=== PATIENT | female | born 2000 | race Caucasian/White ===

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

== ENCOUNTER → 2021-01-28 | Outpatient (CLI) | payer MEDICAID | LOC: M WHC 13:04 | PROVIDERS: ATTEND Advanced Practice Midwife | DX: Z36.9 Encounter for antenatal screening, unspecified (principal); Z3A.21 21 weeks gestation of pregnancy ==

== ENCOUNTER 2021-03-01 11:52 | Outpatient (CLI) | payer MEDICAID ==
[~2021-03-01] VITALS: Ht 157.5 cm; Wt 68.9 kg
[2021-03-01 12:09] VITALS: BP 114/61
[2021-03-01] MEDS ORDERED: PRENTAB9 PO (12:34)
--- NOTE | 2021-03-01 14:09 | IPN ---
PROGRESS NOTE DATE: 03/01/2021 SUBJECTIVE: Gissell is a 20-year-old, 2, para 1-0-0-1, at 24 weeks and 6 days with an EDC of 06/15/21. She presents to labor and delivery with report of upon awakening at 10 a.m., noticed an orange discharge in her underwear. She had no further clean underwear or pads to put on so she presented to labor and delivery for evaluation. She denies contractions, vaginal bleeding and continued leakage. She does report the fetus has been active. care was [facility] at [facility] in the first trimester. course was complicated by tobacco use, bipolar, anxiety, ADHD, depression and she is hearing impaired. OBSTETRIC HISTORY: April,, 5 lb, 9 oz male, vaginal delivery, 38 weeks and 5 days. MEDICAL HISTORY: Bipolar, depression, anxiety, von Willebrand's, asthma, seizures, hearing impaired. SURGERIES: Tympanostomy, cleft palate repair. FAMILY HISTORY: von Willebrand's. SOCIAL HISTORY: The patient is single. She is a smoker, about 1/2 pack per day. She denies current alcohol use and drug use. During her , she does report a history of alcohol and marijuana use prior to . She is unemployed and lives with her other child. ALLERGIES: To penicillin and cefdinir. CURRENT MEDICATIONS: vitamin. OBJECTIVE: Temperature 98, pulse 91. BP is 114/61. The heart rate is 135, appropriate for gestational age. There is no pattern of contractions. Sterile speculum exam: Normal physiological discharge. Gonorrhea and chlamydia collected. Negative Valsalva, negative nitrazine, negative ferning. Sterile vaginal exam: Long, thick, closed, firm. ASSESSMENT: Intrauterine at 24 and 6/7 weeks. heart rate is appropriate for gestational age. PLAN: Discharge the patient home. I did review signs and symptoms of labor, premature rupture of membranes, movement counts and danger signs. I reviewed access to care. The patient is instructed to keep her next appointment. She and her mother's questions have been answered and they do request discharge.
[2021-03-01 15:19] LABS: GC DNA AMPLIFICATION NEGATIVE (NEGATIVE)
== END 2021-03-01 13:45 | disposition home or self-care (01) ==
LOC: M LDO 11:52
PROVIDERS: ATTEND Advanced Practice Midwife
DX: O26.892 Other specified pregnancy related conditions, second trimester (principal); N89.8 Other specified noninflammatory disorders of vagina; O99.332 Smoking (tobacco) complicating pregnancy, second trimester; F17.210 Nicotine dependence, cigarettes, uncomplicated; O99.342 Other mental disorders complicating pregnancy, second trimester; F31.9 Bipolar disorder, unspecified; Z3A.24 24 weeks gestation of pregnancy

== ENCOUNTER 2021-05-04 12:38 | Outpatient (CLI) | payer MEDICAID ==
[~2021-05-04] VITALS: Ht 157.5 cm; Wt 76.3 kg
[2021-05-04 12:51] VITALS: BP 134/74
[2021-05-04] MEDS ORDERED: HOME MED LIST COMPLETE! XX SCH (13:05)
[2021-05-04] MEDS ORDERED: LR 1,000 ML IV SCH (13:10)
[2021-05-04] MEDS ORDERED: LACTATED RINGER'S 1000 ML IV STA (13:10)
[2021-05-04 13:28] VITALS: BP 115/62
[2021-05-04 13:29] VITALS: BP 112/61
[2021-05-04] MEDS ORDERED: ACETAMINOPHEN 500 MG TAB PO ONE (14:15)
[2021-05-04] MEDS ORDERED: PROMETHAZINE INJ 25 MG/ML VIAL (J2550) IV ONE (14:15)
[2021-05-04 14:42] VITALS: BP 113/61
[2021-05-04 14:58] LABS: BASO % 0.3 % (0.0-1.0); EOS # 0.1 10^3/uL (0.0-0.5); EOS % 0.8 % (0.0-3.0); HEMATOCRIT 40.2 % (36.0-47.0); HEMOGLOBIN 13.9 g/dl (12.0-15.5); LYMPH # 1.1 10^3/uL (1.5-5.0); LYMPH % 8.8 % (24.0-44.0); MEAN CORPUSCULAR HEMOGLOBIN 33.2 pg (27.0-33.0); MEAN CORPUSCULAR HGB CONC 34.6 g/dl (32.0-36.5); MEAN CORPUSCULAR VOLUME 95.9 fl (80.0-96.0); MONO # 0.7 10^3/uL (0.0-0.8); MONO % 5.4 % (2.0-8.0); NEUTROPHILS # 10.9 10^3/uL (1.5-8.5); NEUTROPHILS % 84.2 % (36.0-66.0); PLATELET COUNT, AUTOMATED 143 10^3/uL (150-450); RED BLOOD COUNT 4.19 10^6/uL (4.00-5.40); WHITE BLOOD COUNT 12.9 10^3/uL (4.0-10.0)
[2021-05-04 15:08] LABS: ALBUMIN 2.4 GM/DL (3.2-5.2); ALT/SGPT 13 U/L (12-78); AMYLASE 35 U/L (25-115); BILIRUBIN,TOTAL 0.5 MG/DL (0.2-1.0); BLOOD UREA NITROGEN 8 MG/DL (7-18); CALCIUM LEVEL 8.1 MG/DL (8.5-10.1); CARBON DIOXIDE LEVEL 23 MEQ/L (21-32); CHLORIDE LEVEL 105 MEQ/L (98-107); CREATININE FOR GFR 0.41 MG/DL (0.55-1.30); GLUCOSE, FASTING 67 MG/DL (70-100); LIPASE 72 U/L (73-393); POTASSIUM SERUM 3.7 MEQ/L (3.5-5.1); SODIUM LEVEL 137 MEQ/L (136-145)
[2021-05-04 16:27] VITALS: BP 116/60
== END 2021-05-04 18:10 | disposition home or self-care (01) ==
LOC: M LDO 12:38
PROVIDERS: ATTEND Obstetrics & Gynecology
DX: O60.03 Preterm labor without delivery, third trimester (principal); O22.93 Venous complication in pregnancy, unspecified, third trimester; O99.333 Smoking (tobacco) complicating pregnancy, third trimester; F17.210 Nicotine dependence, cigarettes, uncomplicated; Z3A.34 34 weeks gestation of pregnancy

== ENCOUNTER → 2021-05-24 | Outpatient (REF) | payer MEDICAID | LOC: M PLALAB 13:49 | PROVIDERS: ATTEND Obstetrics & Gynecology | DX: Z36.85 Encounter for antenatal screening for Streptococcus B (principal) ==

== ENCOUNTER 2021-05-31 21:54 | Outpatient (CLI) | payer MEDICAID ==
[~2021-05-31] VITALS: Ht 157.5 cm; Wt 79.1 kg
[2021-05-31 22:16] VITALS: BP 116/81
[2021-05-31] MEDS ORDERED: RHOGAM 300 MCG (1500 IU) INJ (J2790) IM SCH (23:20)
[2021-05-31] MEDS ORDERED: MEASLES,MUMPS,RUBELLA VACCINE INJ (MMR-II) (90707) SC SCH (23:20)
[2021-05-31] MEDS ORDERED: SIMETHICONE 80MG CHEW TAB PO PRN (23:20)
[2021-06-01] MEDS ORDERED: PRENATAL VITAMINS CHEWABLE TABLET PO SCH (09:00)
== END 2021-05-31 23:54 | disposition home or self-care (01) ==
LOC: M LDO 21:54
PROVIDERS: ATTEND Obstetrics & Gynecology
DX: O26.893 Other specified pregnancy related conditions, third trimester (principal); N89.8 Other specified noninflammatory disorders of vagina; Z3A.37 37 weeks gestation of pregnancy

== ENCOUNTER 2021-12-31 21:52 | Emergency (ER) | payer MEDICAID, OTHER ==
[~2021-12-31] VITALS: Ht 157.5 cm; Wt 73.6 kg
[2021-12-31 21:52] VITALS: BP 128/71
[~2021-12-31 21:52] MED LIST changes: +ALBU2.5V10 INH; -ALBU83IN INH; +COLA100C5 PO; +ETON68IM SC; -NEXP1IMP SC
== END 2022-01-01 00:13 | disposition left against medical advice (07) ==
LOC: M ED 21:52
DX: Z53.21 Procedure and treatment not carried out due to patient leaving prior to being seen by health care provider (principal)

== ENCOUNTER 2022-01-18 22:31 | Emergency (ER) | payer OTHER ==
[~2022-01-18] VITALS: Ht 157.5 cm; Wt 72.7 kg
[2022-01-18 22:43] VITALS: BP 152/76
[2022-01-18] MEDS ORDERED: IPRATROPIUM 0.5MG/ALBUTEROL 2.5MG INH SOL UD 3ML (DUONEB) NEB PRN (22:55)
[2022-01-18] MEDS ORDERED: IBUPROFEN 600MG TAB PO ONE (23:05)
[2022-01-18] MEDS ORDERED: NS 1,000 ML IV ONE (23:10)
[2022-01-18 23:19] LABS: BASO % 0.5 % (0.0-1.0); EOS % 0.2 % (0.0-3.0); HEMATOCRIT 37.4 % (36.0-47.0); HEMOGLOBIN 13.5 g/dl (12.0-15.5); LYMPH # 0.7 10^3/uL (1.5-5.0); LYMPH % 10.7 % (24.0-44.0); MEAN CORPUSCULAR HEMOGLOBIN 32.3 pg (27.0-33.0); MEAN CORPUSCULAR HGB CONC 36.1 g/dl (32.0-36.5); MEAN CORPUSCULAR VOLUME 89.5 fl (80.0-96.0); MONO # 0.4 10^3/uL (0.0-0.8); MONO % 6.6 % (2.0-8.0); NEUTROPHILS # 5.4 10^3/uL (1.5-8.5); NEUTROPHILS % 81.7 % (36.0-66.0); PLATELET COUNT, AUTOMATED 131 10^3/uL (150-450); RED BLOOD COUNT 4.18 10^6/uL (4.00-5.40); WHITE BLOOD COUNT 6.7 10^3/uL (4.0-10.0)
[2022-01-18 23:52] LABS: ALBUMIN 3.9 G/DL (3.2-5.2); ALT/SGPT 28 U/L (7.0-40); BILIRUBIN,DIRECT 0.5 MG/DL (<0.4); BLOOD UREA NITROGEN 16 MG/DL (9-23); CARBON DIOXIDE LEVEL 20 MMOL/L (20-31); CHLORIDE LEVEL 106 MMOL/L (98-107); CREATININE FOR GFR 0.69 MG/DL (0.55-1.30); GLUCOSE, FASTING 111 MG/DL (60-100); POTASSIUM SERUM 3.1 MMOL/L (3.5-5.1); SODIUM LEVEL 137 MMOL/L (136-145); THYROID STIMULATING HORMONE 0.591 uIU/ML (0.48-4.17); TOTAL PROTEIN 6.7 G/DL (5.7-8.2)
[2022-01-18] MEDS ORDERED: ISOVUE-370 76% 100ML VIAL As Ordered ONE (23:58)
[2022-01-19 01:54] LABS: ABG BASE EXCESS -5.1 (-2.0-2.0); ABG HCO3 17.6 MEQ/L (22.0-26.0); ABG O2 SATURATION 99.3 % (95.0-99.0); ABG PARTIAL PRESSURE CO2 27.1 mmHg (35.0-45.0); ABG PARTIAL PRESSURE O2 222.9 mmHg (75.0-100.0); ABG STANDARD HCO3 20.4 MEQ/L (22.0-26.0); ABG TOTAL CO2 18.5 MEQ/L (22.0-29.0); ABG pH (ARTERIAL) 7.431 UNITS (7.350-7.450)
[2022-01-19] MEDS ORDERED: OSELTAMIVIR PHOSPHATE 75 MG CAP (TAMIFLU) PO ONE (02:50)
[2022-01-19] MEDS ORDERED: PRED20TA PO (02:53)
[2022-01-19] MEDS ORDERED: OSEL75CA PO (02:53)
== END 2022-01-19 03:14 | disposition home or self-care (01) ==
LOC: M ED 22:31
DX: J45.901 Unspecified asthma with (acute) exacerbation (principal); J09.X2 Influenza due to identified novel influenza A virus with other respiratory manifestations; B34.8 Other viral infections of unspecified site; M54.9 Dorsalgia, unspecified; F31.9 Bipolar disorder, unspecified; F41.9 Anxiety disorder, unspecified; R56.9 Unspecified convulsions; Z87.442 Personal history of urinary calculi; F07.81 Postconcussional syndrome; F17.200 Nicotine dependence, unspecified, uncomplicated; Z88.0 Allergy status to penicillin; Z88.1 Allergy status to other antibiotic agents; Z79.899 Other long term (current) drug therapy

== ENCOUNTER 2023-10-30 14:02 | Emergency (ER) | payer OTHER ==
[~2023-10-30] VITALS: Ht 157.5 cm; Wt 57.1 kg
[~2023-10-30 14:02] MED LIST changes: +OSEL75CA PO
[2023-10-30 14:43] LABS: BASO % 0.4 % (0.0-1.0); EOS # 0.2 10^3/uL (0.0-0.5); EOS % 2.8 % (0.0-3.0); HEMATOCRIT 39.9 % (36.0-47.0); HEMOGLOBIN 14.4 g/dl (12.0-15.5); LYMPH # 2.6 10^3/uL (1.5-5.0); LYMPH % 33.7 % (24.0-44.0); MEAN CORPUSCULAR HEMOGLOBIN 33.8 pg (27.0-33.0); MEAN CORPUSCULAR HGB CONC 36.1 g/dl (32.0-36.5); MEAN CORPUSCULAR VOLUME 93.7 fl (80.0-96.0); MONO # 0.6 10^3/uL (0.0-0.8); MONO % 7.1 % (2.0-8.0); NEUTROPHILS # 4.3 10^3/uL (1.5-8.5); NEUTROPHILS % 55.9 % (36.0-66.0); PLATELET COUNT, AUTOMATED 198 10^3/uL (150-450); RED BLOOD COUNT 4.26 10^6/uL (4.00-5.40); WHITE BLOOD COUNT 7.7 10^3/uL (4.0-10.0)
[2023-10-30 15:12] LABS: BLOOD UREA NITROGEN 12 MG/DL (9-23); CALCIUM LEVEL 8.8 MG/DL (8.5-10.1); CARBON DIOXIDE LEVEL 26 MMOL/L (20-31); CHLORIDE LEVEL 111 MMOL/L (98-107); CREATININE FOR GFR 0.64 MG/DL (0.55-1.30); GLOMERULAR FILTRATION RATE > 60.0 (>60); GLUCOSE, FASTING 99 MG/DL (60-100); HCG, SERUM QUANTITATIVE 4.3 MIU/ML (<4.2); POTASSIUM SERUM 3.6 MMOL/L (3.5-5.1); SODIUM LEVEL 139 MMOL/L (136-145)
[2023-10-30 16:47] VITALS: BP 114/66; TEMP 98.1; O2SAT 99
== END 2023-10-30 16:51 | disposition home or self-care (01) ==
LOC: M ED 14:02
DX: O03.9 Complete or unspecified spontaneous abortion without complication (principal); F31.9 Bipolar disorder, unspecified; F17.200 Nicotine dependence, unspecified, uncomplicated; Z88.0 Allergy status to penicillin; Z88.1 Allergy status to other antibiotic agents; Z79.52 Long term (current) use of systemic steroids; Z79.899 Other long term (current) drug therapy

== ENCOUNTER 2024-02-17 03:57 | Emergency (ER) | payer OTHER ==
[~2024-02-17] VITALS: Ht 157.5 cm; Wt 57.6 kg
[2024-02-17] MEDS: ACETAMINOPHEN 325 MG TAB PO ONE (08:40)
[2024-02-17] MEDS ORDERED: CLEO300C2 PO (11:55)
[2024-02-17 12:02] VITALS: BP 136/63; TEMP 97; O2SAT 100
== END 2024-02-17 12:13 | disposition home or self-care (01) ==
LOC: EDBD 03:57 → M ED 03:57
DX: K02.9 Dental caries, unspecified (principal); K08.89 Other specified disorders of teeth and supporting structures; Z88.0 Allergy status to penicillin; Z88.1 Allergy status to other antibiotic agents; Z79.2 Long term (current) use of antibiotics

== ENCOUNTER → 2024-04-04 | Outpatient (REF) | payer MEDICAID, OTHER ==
[~2024-04-04] MED LIST changes: +CLEO300C2 PO
[2024-04-04 16:15] LABS: Trichomonas vaginalis (AMP) NOT DETECTED (NEGATIVE)
[2024-04-04 16:39] LABS: GC DNA AMPLIFICATION NEGATIVE (NEGATIVE)
== END ==
LOC: M SFHCWAGY 13:19
PROVIDERS: ATTEND Nurse Practitioner Family
DX: Z34.80 Encounter for supervision of other normal pregnancy, unspecified trimester (principal); Z11.3 Encounter for screening for infections with a predominantly sexual mode of transmission

== ENCOUNTER → 2024-04-04 | Outpatient (CLI) | payer OTHER | LOC: M WHC 09:44 | PROVIDERS: ATTEND Nurse Practitioner Family | DX: Z34.82 Encounter for supervision of other normal pregnancy, second trimester (principal); Z3A.15 15 weeks gestation of pregnancy; Z78.9 Other specified health status ==

== ENCOUNTER → 2024-04-05 | Outpatient (CLI) | payer MEDICAID, OTHER ==
[2024-04-05 15:02] LABS: HEMATOCRIT 39.4 % (36.0-47.0); HEMOGLOBIN 14.2 g/dl (12.0-15.5); MEAN CORPUSCULAR HEMOGLOBIN 34.3 pg (27.0-33.0); MEAN CORPUSCULAR VOLUME 95.2 fl (80.0-96.0); PLATELET COUNT, AUTOMATED 178 10^3/uL (150-450); RED BLOOD COUNT 4.14 10^6/uL (4.00-5.40); WHITE BLOOD COUNT 8.5 10^3/uL (4.0-10.0)
[2024-04-05 15:55] LABS: HIV 1&2 SCREEN NEGATIVE (NEGATIVE)
[2024-04-05 16:03] LABS: HEPATITIS C VIRUS ABY INDEX 0.13 INDEX (<0.8)
== END ==
LOC: M PLALAB 11:32
PROVIDERS: ATTEND Nurse Practitioner Family
DX: Z34.82 Encounter for supervision of other normal pregnancy, second trimester (principal); Z3A.00 Weeks of gestation of pregnancy not specified

== ENCOUNTER → 2024-05-27 | Outpatient (CLI) | payer OTHER | LOC: M WHC 13:29 | PROVIDERS: ATTEND Nurse Practitioner Family | DX: Z34.82 Encounter for supervision of other normal pregnancy, second trimester (principal) ==

== ENCOUNTER 2024-06-08 22:02 | Emergency (ER) | payer OTHER, MEDICAID ==
[~2024-06-08] VITALS: Ht 157.5 cm; Wt 62.0 kg
== END 2024-06-08 22:06 | disposition left against medical advice (07) ==
LOC: M ED 22:02
DX: Z53.21 Procedure and treatment not carried out due to patient leaving prior to being seen by health care provider (principal)

== ENCOUNTER 2024-06-08 22:10 | Outpatient (CLI) | payer OTHER, MEDICAID ==
[~2024-06-08] VITALS: Ht 157.5 cm; Wt 61.8 kg
[2024-06-08 22:25] VITALS: BP 99/58
[2024-06-08 23:51] LABS: APPEARANCE, URINE HAZY (CLEAR); BACTERIA, URINE AUTO 1+ (NEGATIVE); BILIRUBIN, URINE AUTO 1+ (NEGATIVE); BLOOD, URINE BLOOD 1+ (NEGATIVE); COLOR, URINE AMBER (YELLOW); GLUCOSE, URINE (UA) AUTO NEGATIVE (NEGATIVE); KETONE, URINE AUTO NEGATIVE (NEGATIVE); LEUKOCYTE ESTERASE, URINE AUTO 2+ (NEGATIVE); MUCUS, URINE SMALL (NEGATIVE); NITRITE, URINE AUTO NEGATIVE (NEGATIVE); PROTEIN, URINE AUTO NEGATIVE (NEGATIVE); RBC, URINE AUTO 11 /HPF (0-3); SPECIFIC GRAVITY URINE AUTO 1.013 (1.002-1.035); SQUAMOUS EPITHELIAL CELL UR AU 22 /HPF (0-6); WBC, URINE AUTO 9 /HPF (0-3)
[2024-06-09 00:52] LABS: Trichomonas vaginalis (AMP) NOT DETECTED (NEGATIVE)
[2024-06-09 01:15] LABS: GC DNA AMPLIFICATION NEGATIVE (NEGATIVE)
== END 2024-06-09 | disposition home or self-care (01) ==
LOC: M LDO 22:10
PROVIDERS: ATTEND Advanced Practice Midwife
DX: O98.312 Other infections with a predominantly sexual mode of transmission complicating pregnancy, second trimester (principal); O99.512 Diseases of the respiratory system complicating pregnancy, second trimester; O99.332 Smoking (tobacco) complicating pregnancy, second trimester; A74.9 Chlamydial infection, unspecified; J09.X2 Influenza due to identified novel influenza A virus with other respiratory manifestations; R05.9 Cough, unspecified; F17.210 Nicotine dependence, cigarettes, uncomplicated; Z67.41 Type O blood, Rh negative; Z86.19 Personal history of other infectious and parasitic diseases; Z3A.23 23 weeks gestation of pregnancy
CPT/HCPCS: 59025; 81001; 87086; 87486; 87581; 87633; 87661; 87798; 87810; 87850; G0463

== ENCOUNTER → 2024-07-15 | Outpatient (REF) | payer OTHER, MEDICAID ==
[2024-07-15 19:16] LABS: Trichomonas vaginalis (AMP) NOT DETECTED (NEGATIVE)
[2024-07-15 19:40] LABS: GC DNA AMPLIFICATION NEGATIVE (NEGATIVE)
== END ==
LOC: M SFHCWAGY 16:39
PROVIDERS: ATTEND Obstetrics & Gynecology
DX: Z34.82 Encounter for supervision of other normal pregnancy, second trimester (principal)

== ENCOUNTER 2024-09-03 10:19 | Outpatient (CLI) | payer MEDICAID, OTHER ==
[~2024-09-03] VITALS: Ht 157.5 cm; Wt 72.7 kg
[2024-09-03 10:32] VITALS: BP 126/70
== END 2024-09-03 11:14 | disposition home or self-care (01) ==
LOC: M LDO 10:19
PROVIDERS: ATTEND Obstetrics & Gynecology
DX: O47.03 False labor before 37 completed weeks of gestation, third trimester (principal); O99.333 Smoking (tobacco) complicating pregnancy, third trimester; F17.210 Nicotine dependence, cigarettes, uncomplicated; Z67.41 Type O blood, Rh negative; Z3A.36 36 weeks gestation of pregnancy
CPT/HCPCS: 59025; 76815; G0463

== ENCOUNTER 2024-09-07 17:35 | Outpatient (CLI) | payer OTHER ==
[~2024-09-07] VITALS: Ht 157.5 cm; Wt 72.2 kg
[~2024-09-07 17:35] MED LIST changes: -ACET-861 PO
[2024-09-07 17:55] VITALS: BP 127/73
[2024-09-07] MEDS ORDERED: ACET-861 PO (18:00)
[2024-09-07] MEDS: CLINDAMYCIN 150 MG CAPSULE PO ONE (18:28)
[2024-09-07] MEDS: BENZOCAINE 10% 9 GM TUBE TOP PRN (18:28)
[2024-09-07 20:24] LABS: Trichomonas vaginalis (AMP) NOT DETECTED (NEGATIVE)
[2024-09-07 20:46] LABS: GC DNA AMPLIFICATION NEGATIVE (NEGATIVE)
== END 2024-09-07 18:32 | disposition home or self-care (01) ==
LOC: M LDO 17:35
PROVIDERS: ATTEND Advanced Practice Midwife
DX: O26.893 Other specified pregnancy related conditions, third trimester (principal); O99.333 Smoking (tobacco) complicating pregnancy, third trimester; O99.613 Diseases of the digestive system complicating pregnancy, third trimester; R03.0 Elevated blood-pressure reading, without diagnosis of hypertension; K08.89 Other specified disorders of teeth and supporting structures; R51.9 Headache, unspecified; Z3A.37 37 weeks gestation of pregnancy; F17.210 Nicotine dependence, cigarettes, uncomplicated
CPT/HCPCS: 59025; 87661; 87810; 87850; G0463

== ENCOUNTER → 2024-09-07 | Outpatient (CLI) | payer OTHER ==
[~2024-09-07] MED LIST changes: +ACET-861 PO
[2024-09-07 14:05] LABS: PLATELET COUNT, AUTOMATED 170 10^3/uL (150-450)
[2024-09-07 14:06] LABS: ALT/SGPT 11 U/L (7.0-40); AST/SGOT 14 U/L (<34); CALCIUM LEVEL 9.0 MG/DL (8.5-10.1); CARBON DIOXIDE LEVEL 22 MMOL/L (20-31); CHLORIDE LEVEL 106 MMOL/L (98-107); CREATININE FOR GFR 0.49 MG/DL (0.55-1.30); GLOMERULAR FILTRATION RATE > 90.0 (>60); POTASSIUM SERUM 4.2 MMOL/L (3.5-5.1); SODIUM LEVEL 139 MMOL/L (136-145)
[2024-09-07 14:19] LABS: TOTAL PROTEIN,RANDOM URINE 15.4 MG/DL (0.0-14.0)
== END ==
LOC: M PLALAB 11:10
PROVIDERS: ATTEND Obstetrics & Gynecology
DX: O16.3 Unspecified maternal hypertension, third trimester (principal)